=== PATIENT | female | born 2000 | race American Indian/Alaskan Native ===

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

== ENCOUNTER 2020-02-22 20:05 | Outpatient (CLI) | payer OTHER ==
[2020-02-22 21:32] VITALS: BP 116/66
== END 2020-02-22 22:45 | disposition home or self-care (01) ==
LOC: TRG 20:05 → APU 20:12 → TRG 22:45
PROVIDERS: ATTEND Obstetrics & Gynecology
DX: O42.92 Full-term premature rupture of membranes, unspecified as to length of time between rupture and onset of labor (principal); Z3A.26 26 weeks gestation of pregnancy
CPT/HCPCS: 59025

== ENCOUNTER 2020-03-07 11:26 | Outpatient (CLI) | payer OTHER | END 2020-03-07 13:43 | disposition home or self-care (01) | LOC: LAB 11:26 → APU 13:18 → TRG 13:43 | PROVIDERS: ATTEND Obstetrics & Gynecology | DX: O26.893 Other specified pregnancy related conditions, third trimester (principal); Z3A.28 28 weeks gestation of pregnancy; Z67.41 Type O blood, Rh negative | CPT/HCPCS: 86850; 86900; 86901; 96372; J2790 ==

== ENCOUNTER 2020-03-18 12:02 | Outpatient (CLI) | payer OTHER ==
[2020-03-18 14:21] VITALS: BP 122/63
[2020-03-18] MEDS ORDERED: LACTATED RINGERS 1,000 ML IV ONE (14:21)
[2020-03-18 15:34] LABS: Bacteria,Urine 1+ /HPF (Negative); Bilirubin,Urine NEG (Negative); Blood,Urine LG (Negative); Color,Urine Yellow (Yellow); Mucus,Urine FEW /HPF; Protein,Urine <15 mg/dL mg/dL (Negative); Urobilinogen,Urine < 2.0 mg/dL (<2.0)
--- NOTE | 2020-03-18 19:23 | Ultrasound Report ---
ULTRASOUND OBSTETRIC LIMITED ULTRASOUND BIOPHYSICAL PROFILE INDICATION / CLINICAL INFORMATION: Possible placental abruption. Evaluate biophysical profile. COMPARISON: None available. FINDINGS: BREATHING MOVEMENT = 2 GROSS BODY MOVEMENT = 2 TONE = 2 QUALITATIVE AMNIOTIC FLUID VOLUME = 2 TOTAL BIOPHYSICAL SCORE = 8/8 PRESENTATION: Cephalic. HEART RATE (beats per minute): 137 ADDITIONAL FINDINGS: The placenta is unremarkable as visualized. IMPRESSION: 1. Biophysical Score = 8/8 2. No sonographic evidence of placental abruption on this limited study. Signer Name: Torres Alatorre MD Signed: 03/18/2020 7:18 PM Workstation Name: [id number]
== END 2020-03-18 19:12 | disposition home or self-care (01) ==
LOC: TRG 12:02 → APU 13:05 → TRG 19:12
PROVIDERS: ATTEND Obstetrics & Gynecology
DX: O46.93 Antepartum hemorrhage, unspecified, third trimester (principal); Z3A.30 30 weeks gestation of pregnancy
CPT/HCPCS: 59025; 76815; 76819; 81001; 96360; J7120